=== PATIENT | female | born 1965 | race American Indian/Alaskan Native ===

== ENCOUNTER 2016-11-13 23:24 | Emergency (ER) | payer MEDICAID ==
[2016-11-14 00:02] LABS: Bilirubin,Urine NEG (Negative); Blood,Urine NEG (Negative); Ketones,Urine NEG (Negative); Leukocyte Esterase,Urine MOD (Negative); Nitrite,Urine NEG (Negative); Protein,Urine <15 mg/dL mg/dL (Negative); Urobilinogen,Urine < 2.0 mg/dL (<2.0)
[2016-11-14 00:05] LABS: Bacteria,Urine 2+ /HPF (Negative)
[2016-11-14 00:07] LABS: Basophils % (Auto) 0.5 % (0.0-1.8); Eosinophils % (Auto) 1.4 % (0.0-4.3); Hematocrit 41.6 % (30.3-42.9); Hemoglobin 13.7 gm/dl (10.1-14.3); Mean Corpuscular HGB Conc 33 % (30-34); Mean Corpuscular Hemoglobin 28 pg (28-32); Mean Corpuscular Volume 84 fl (79-97); Platelet Count 322 K/mm3 (140-440); Red Blood Count 4.97 M/mm3 (3.65-5.03); Red Cell Distribution Width 15.7 % (13.2-15.2); White Blood Count 8.6 K/mm3 (4.5-11.0)
[2016-11-14 00:33] LABS: Alanine Aminotransferase 19 units/L (7-56); Albumin 4.4 g/dL (3.9-5); Albumin/Globulin Ratio 1.4 %; Alkaline Phosphatase 98 units/L (35-129); Anion Gap 14 mmol/L; Bilirubin,Total < 0.20 mg/dL (0.1-1.2); Blood Urea Nitrogen 7 mg/dL (7-17); Calcium 9.6 mg/dL (8.4-10.2); Carbon Dioxide 29 mmol/L (22-30); Chloride 98.3 mmol/L (98-107); Glucose 103 mg/dL (65-100); Lipase 28 units/L (13-60); Potassium 4.5 mmol/L (3.6-5.0); Sodium 137 mmol/L (137-145); Total Protein 7.5 g/dL (6.3-8.2)
[2016-11-14] MEDS ORDERED: ZOFRAN IV ONE (07:11)
[2016-11-14] MEDS ORDERED: MORPHINE IV ONE (07:11)
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
[2016-11-14] MEDS ORDERED: NACL ONE (07:17)
--- NOTE | 2016-11-14 10:05 | Cat Scan Report ---
CT ABDOMEN AND PELVIS WITH CONTRAST INDICATION: Right-sided abdominal pain. COMPARISON: 02/16/2009 CT and 10/06/2014 RUQ ultrasound. FINDINGS: Abdomen and pelvis CT performed following intravenous administration of 100 cc of Omnipaque 300, though in part limited due to motion artifact. LUNG BASES: Slight bibasilar scarring. Top normal heart size. No effusions. Stable thoracic spine fusion hardware partially imaged on the timber sprinkler view. ABDOMEN: Subtle diffuse fatty hepatic infiltration not excluded. Otherwise homogenous liver and spleen. Subtle nonspecific hepatic surface lobulation. Patent veins. Gallbladder, pancreas, adrenals, nonaneurysmal abdominal aorta with few atherosclerotic calcifications and kidneys within normal limits. Previously seen small nonobstructing right renal calculi inferiorly not well visualized. 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 IVC filter again noted with its tip at the level of the renal veins. No ascites or significant adenopathy. Nonopacified GI tract evaluation limited, though grossly nonobstructive. Normal appendix, extending into the right hemipelvis. Mild to moderate colonic stool/possible constipation. PELVIS: Interval hysterectomy and suprapubic cystostomy catheter placement. Usual rectosigmoid stool. No free fluid or significant adenopathy. 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 Mild fat herniating through this defect again noted superior gluteal, though slightly more prominent, now approximately 2.6 cm, axial image 46, series 2, previously 2.2 cm. Lower lumbar facet arthropathy. Mild bilateral hip degenerative changes as well. CONCLUSION: 1. No acute CT abnormality with few incidental findings, including right iliac bone and liver CT findings/appearance, as detailed above, in light of presenting right-sided symptoms. Please correlate. 2. Various other incidental findings, including iatrogenic/postsurgical changes, duplicated left renal collecting system and interval hysterectomy and suprapubic cystostomy catheter placement since January 2009, as described. Thank you for the opportunity to participate in this patient's care.
[2016-11-14 12:43] VITALS: BP 105/62
--- NOTE | 2016-11-15 07:56 | Vascular Lab Report ---
Right Lower Extremity Venous Duplex Study: Reason for Exam: Pain of the right lower extremity. Comments on the Right: All veins visualized are freely compressible without evidence of internal echogenicity. Flow is spontaneous and phasic throughout. No evidence of acute or chronic thrombus is seen in any of the vessels visualized. Comments on the Left: A limited duplex study was done of the proximal veins of the left lower extremity. All veins visualized are freely compressible without evidence of internal echogenicity. Flow is spontaneous and phasic throughout. No evidence of acute or chronic thrombus is seen in any of the vessels visualized. Impression: No evidence of acute or chronic deep venous thrombosis in the right lower extremity.
== END 2016-11-14 11:10 | disposition home or self-care (01) ==
LOC: ED 23:24
DX: M79.1 Myalgia (principal); R82.71 Bacteriuria; J45.909 Unspecified asthma, uncomplicated; F17.210 Nicotine dependence, cigarettes, uncomplicated
CPT/HCPCS: 36415; 74177; 80053; 81001; 83690; 84703; 85025; 93971; 96374; 96375; 99284; J2270; J2405; Q9967

== ENCOUNTER 2017-03-30 12:25 | Emergency (ER) | payer MEDICAID ==
[2017-03-30] MEDS ORDERED: TYLENOL PO ONE (13:09)
[2017-03-30 14:19] LABS: Alanine Aminotransferase 30 units/L (7-56); Albumin/Globulin Ratio 1.3 %; Alkaline Phosphatase 83 units/L (35-129); Anion Gap 19 mmol/L; BUN/Creatinine Ratio 28; Blood Urea Nitrogen 17 mg/dL (7-17); Calcium 9.1 mg/dL (8.4-10.2); Carbon Dioxide 24 mmol/L (22-30); Chloride 105.3 mmol/L (98-107); Glucose 93 mg/dL (65-100); Potassium 3.8 mmol/L (3.6-5.0); Sodium 144 mmol/L (137-145)
--- NOTE | 2017-03-30 15:15 | XRay Report ---
LEFT SHOULDER: History: Fall, no additional appropriate clinical history provided. Routine views demonstrate normal bony and soft tissue structures with normal joint alignment of the shoulder. IMPRESSION: Normal study.
--- NOTE | 2017-03-30 15:16 | XRay Report ---
CERVICAL SPINE, 3 views: History: Fall, no appropriate additional clinical history was provided by the ordering physician. Findings: The vertebral bodies, disk spaces, posterior elements and prevertebral soft tissues are unremarkable. The dens is intact. No acute fracture or malalignment is identified. Impression: 1. No evidence for acute injury to the cervical spine.
[2017-03-30] MEDS ORDERED: DILAUDID IM ONE (16:54)
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
--- NOTE | 2017-03-30 18:18 | Cat Scan Report ---
FINAL REPORT PROCEDURE: CT HEAD/BRAIN WO CON TECHNIQUE: Computerized tomography of the head was performed without contrast material. HISTORY: Pain after fall COMPARISON: No prior studies are available for comparison. FINDINGS: There is no CT evidence of intracranial mass, hemorrhage, acute territorial infarction, or hydrocephalus. The intracranial arteries are symmetric in density. The calvarium is intact. The visualized paranasal sinuses and mastoids are aerated. IMPRESSION: No CT evidence of acute intracranial abnormality
--- NOTE | 2017-03-30 19:16 | Cat Scan Report ---
FINAL REPORT PROCEDURE: CT CHEST WO CON TECHNIQUE: Computerized axial tomography of the chest was performed without contrast material. This study is performed without intravenous contrast and the sensitivity for pathology, including neoplasms, adenopathy, abscess, pulmonary embolism and aortic dissection, is reduced. HISTORY: fall, back pain and chest wall pain COMPARISON: No prior studies are available for comparison. TECHNICAL QUALITY: Satisfactory. FINDINGS: There is focal low-attenuation of the right thyroid gland, possibly related to a complex cyst or low-density nodule. This measures up to 14 millimeters. Heart and pericardium: No pericardial effusion or thickening. Thoracic aorta: Normal contour. Pulmonary vasculature: Normal caliber. Lymph nodes: No enlarged thoracic lymph nodes. Lungs: Normal. Pleural space: No effusion, thickening, or pneumothorax. Musculoskeletal structures: There has been posterior fusion from the level of T4 through T8, with pedicular rods and screws in place. There is linear lucency through the spinous process of C7, which appears well corticated is favored to be related to an old fracture. Upper abdominal structures: IVC filter is present. IMPRESSION: No acute fracture is seen. Focal low-attenuation nodular cyst in the right thyroid lobe.
--- NOTE | 2017-03-30 19:36 | Cat Scan Report ---
FINAL REPORT PROCEDURE: CT CERVICAL SPINE WO CON TECHNIQUE: Computerized tomography of the cervical spine was performed from the skull base to T1 without contrast material. HISTORY: fall with neck pain COMPARISON: No prior studies are available for comparison. FINDINGS: There is a chronic appearing defect in the posterior arch of C1, likely developmental. There is linear lucency through C7 spinous process, which also appears chronic. There are hypertrophic changes of the right costovertebral junction, chronic. The vertebral body heights and alignment are maintained. Mild multilevel degenerative disc changes are present. No acute fracture is identified. IMPRESSION: No acute fracture or subluxation is identified.
[2017-03-30 20:03] VITALS: BP 115/47
== END 2017-03-31 01:02 | disposition home or self-care (01) ==
LOC: ED 12:25
DX: M54.9 Dorsalgia, unspecified (principal); M54.2 Cervicalgia
CPT/HCPCS: 36415; 70450; 71250; 72040; 72125; 73030; 80053; 96372; 99284; J1170

== ENCOUNTER 2017-07-20 02:57 | Inpatient (IN) | payer MEDICAID ==
[2017-07-20 04:05] LABS: Basophils % (Auto) 0.4 % (0.0-1.8); Eosinophils # (Auto) 0.1 K/mm3 (0.0-0.4); Eosinophils % (Auto) 0.7 % (0.0-4.3); Hematocrit 35.6 % (30.3-42.9); Hemoglobin 11.9 gm/dl (10.1-14.3); Lymphocytes # (Auto) 2.1 K/mm3 (1.2-5.4); Lymphocytes % (Auto) 20.2 % (13.4-35.0); Mean Corpuscular HGB Conc 33 % (30-34); Mean Corpuscular Hemoglobin 27 pg (28-32); Mean Corpuscular Volume 81 fl (79-97); Monocytes # (Auto) 0.8 K/mm3 (0.0-0.8); Monocytes % (Auto) 7.6 % (0.0-7.3); Platelet Count 367 K/mm3 (140-440); Red Blood Count 4.39 M/mm3 (3.65-5.03); Red Cell Distribution Width 14.4 % (13.2-15.2)
[2017-07-20 04:30] LABS: BUN/Creatinine Ratio 16; Blood Urea Nitrogen 11 mg/dL (7-17); Calcium 8.5 mg/dL (8.4-10.2); Hemolysis Index 1
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
[2017-07-20] MEDS ORDERED: VANCOMYCIN 1,250 MG in NACL 0.9% 250ML 250 ML IV ONE (08:45)
--- NOTE | 2017-07-20 08:50 | XRay Report ---
LEFT HIP, 2 views: History: Deep decub Borderline bone mineralization. Mild osteoarthritic changes are identified at the left hip. No fracture or bone lesion. Unremarkable soft tissues. IMPRESSION: Mild osteoarthritis. No acute process noted.
--- NOTE | 2017-07-20 08:52 | XRay Report ---
AP CHEST: HISTORY: Hypertension AP view of the chest demonstrates a normal mediastinal and cardiac contour with clear lungs and normal bony and soft tissue structures. Posterior fixation of the upper thoracic spine is noted. IMPRESSION: Unremarkable AP chest.
[2017-07-20] MEDS ORDERED: VANCOMYCIN PHARMACY TO DOSE IV SCH (09:00)
[2017-07-20 09:27] LABS: INR 0.93 (0.87-1.13)
[2017-07-20 09:28] LABS: Partial Thromboplastin Time 35.6 Sec. (24.2-36.6)
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
[2017-07-20] MEDS ORDERED: ZOFRAN IV PRN (11:01)
[2017-07-20] MEDS ORDERED: BABY ASPIRIN PO ONE (11:49)
[2017-07-20] MEDS: SODIUM CHLORIDE FLUSH SYRINGE 10 ML IV PRN (16:16)
[2017-07-20] MEDS: ZOSYN/NS 4.5GM/100ML 4.5 GM/100 ML VIAL IV SCH ×2 (16:16→21:10)
[2017-07-20] MEDS: TYLENOL PO PRN (16:22)
[2017-07-20] MEDS ORDERED: VANCOMYCIN/NS 1 GM/250 ML 1 GM/250 ML BAG IV SCH (21:00)
[2017-07-20] MEDS: SODIUM CHLORIDE FLUSH SYRINGE 10 ML IV SCH (21:11)
[2017-07-20] MEDS: LIORESAL PO SCH (21:11)
[2017-07-20] MEDS: DITROPAN PO SCH (21:12)
[2017-07-20] MEDS: ZANAFLEX PO SCH (21:12)
[2017-07-21] MEDS: ZOSYN/NS 4.5GM/100ML 4.5 GM/100 ML VIAL IV SCH ×3 (05:44→23:06)
[2017-07-21] MEDS: ZANAFLEX PO SCH ×3 (09:31→23:14)
[2017-07-21] MEDS: LOVENOX SUB-Q SCH (09:31)
[2017-07-21] MEDS: DITROPAN PO SCH ×2 (09:31→23:13)
[2017-07-21] MEDS: TYLENOL PO PRN (09:32)
[2017-07-21] MEDS: LIORESAL PO SCH ×3 (10:00→23:14)
[2017-07-21] MEDS: SODIUM CHLORIDE FLUSH SYRINGE 10 ML IV SCH ×2 (10:01→23:08)
--- NOTE | 2017-07-21 10:23 | Progress Note ---
Assessment and Plan Assessment and plan: Left hip ulcer with probable osteomyelitis. MRI of the left hip for further evaluation. Continue IV antibiotics. Orthopedic consultation pending. Chest pain. Check EKG. Consider stress thallium. T6 paraplegia. Supportive care. History Interval history: Nurse report patient complained of brief episode chest pain this a.m. No shortness of breath. Hospitalist Physical - Constitutional Vitals: Temp Pulse Resp BP Pulse Ox 98.4 F 74 18 111/38 98 07/21/17 07:40 07/21/17 07:40 07/21/17 07:40 07/21/17 07:40 07/21/17 07:40 General appearance: Present: no acute distress, well-nourished - EENT Eyes: Present: PERRL, EOM intact ENT: hearing intact, clear oral mucosa, dentition normal - Neck Neck: Present: supple, normal ROM - Respiratory Respiratory effort: normal Respiratory: bilateral: CTA - Cardiovascular Rhythm: regular Heart Sounds: Present: S1 & S2. Absent: gallop, rub - Extremities Extremities: no ischemia, No edema, Full ROM - Abdominal General gastrointestinal: soft, non-tender, non-distended, normal bowel sounds - Integumentary Integumentary: Present: clear, warm, dry - Neurologic Neurologic: CNII-XII intact, moves all extremities Results - Labs CBC & Chem 7: 07/20/17 03:46 07/20/17 03:46 Labs: Laboratory Last Values WBC 10.6 K/mm3 (4.5-11.0) 07/20/17 03:46 RBC 4.39 M/mm3 (3.65-5.03) 07/20/17 03:46 Hgb 11.9 gm/dl (10.1-14.3) 07/20/17 03:46 Hct 35.6 % (30.3-42.9) 07/20/17 03:46 MCV 81 fl (79-97) 07/20/17 03:46 MCH 27 pg (28-32) L 07/20/17 03:46 MCHC 33 % (30-34) 07/20/17 03:46 RDW 14.4 % (13.2-15.2) 07/20/17 03:46 Plt Count 367 K/mm3 (140-440) 07/20/17 03:46 Lymph % (Auto) 20.2 % (13.4-35.0) 07/20/17 03:46 [place] % (Auto) 7.6 % (0.0-7.3) H 07/20/17 03:46 Eos % (Auto) 0.7 % (0.0-4.3) 07/20/17 03:46 Baso % (Auto) 0.4 % (0.0-1.8) 07/20/17 03:46 Lymph # 2.1 K/mm3 (1.2-5.4) 07/20/17 03:46 [place] # 0.8 K/mm3 (0.0-0.8) 07/20/17 03:46 Eos # 0.1 K/mm3 (0.0-0.4) 07/20/17 03:46 Baso # 0.0 K/mm3 (0.0-0.1) 07/20/17 03:46 Seg Neutrophils % 71.1 % (40.0-70.0) H 07/20/17 03:46 Seg Neutrophils # 7.5 K/mm3 (1.8-7.7) 07/20/17 03:46 ESR 63 mm/Hr (0-20) 07/20/17 08:51 PT 12.9 Sec. (12.2-14.9) 07/20/17 08:57 INR 0.93 (0.87-1.13) 07/20/17 08:57 APTT 35.6 Sec. (24.2-36.6) 07/20/17 08:57 Sodium 139 mmol/L (137-145) 07/20/17 03:46 Potassium 4.0 mmol/L (3.6-5.0) 07/20/17 03:46 Chloride 100.6 mmol/L (98-107) 07/20/17 03:46 Carbon Dioxide 26 mmol/L (22-30) 07/20/17 03:46 Anion Gap 16 mmol/L 07/20/17 03:46 BUN 11 mg/dL (7-17) 07/20/17 03:46 Creatinine 0.7 mg/dL (0.7-1.2) 07/20/17 03:46 Estimated GFR > 60 ml/min 07/20/17 03:46 BUN/Creatinine Ratio 16 % 07/20/17 03:46 Glucose 108 mg/dL (65-100) H 07/20/17 03:46 Lactic Acid 1.00 mmol/L (0.7-2.0) 07/20/17 03:46 Calcium 8.5 mg/dL (8.4-10.2) 07/20/17 03:46 C-Reactive Protein 5.20 mg/dL (0.00-1.30) H 07/20/17 08:57 Blood Type A POSITIVE 07/20/17 11:07 Antibody Screen Negative 07/20/17 11:07
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
--- NOTE | 2017-07-21 18:54 | Procedure Note ---
Date of procedure: 07/21/17 Pre-op diagnosis: left thigh decubitus ulcer Post-op diagnosis: same Procedure: Debridement of left hip wound Consent was obtained. Timeout was performed. I confirmed patient had no sensation. With scissors, I sharply excised all the necrotic tissue along the caudal margin as well as in the deep portion of the wound. Approximately, 5 cm of tissue was excised. Remaining tissue bled and had a more normal appearance. Pressure was held for hemostasis. Once this was done, dressings were placed. Patient tolerated procedure well. There were no complications. Anesthesia: none Surgeon: MARY SOSA Estimated blood loss: minimal Pathology: none Condition: stable Disposition: floor
[2017-07-22] MEDS ORDERED: ALUM-MAG HYDROX-SIMETH 200-200-20MG/5ML PO PRN (00:55)
[2017-07-22] MEDS: ZOSYN/NS 4.5GM/100ML 4.5 GM/100 ML VIAL IV SCH ×3 (07:00→22:50)
[2017-07-22 07:29] LABS: BUN/Creatinine Ratio 10; Blood Urea Nitrogen 7 mg/dL (7-17); Calcium 8.8 mg/dL (8.4-10.2); Hemolysis Index 14
[2017-07-22 07:38] LABS: Basophils % (Auto) 0.6 % (0.0-1.8); Eosinophils # (Auto) 0.1 K/mm3 (0.0-0.4); Eosinophils % (Auto) 2.1 % (0.0-4.3); Hemoglobin 11.1 gm/dl (10.1-14.3); Lymphocytes # (Auto) 2.6 K/mm3 (1.2-5.4); Lymphocytes % (Auto) 43.5 % (13.4-35.0); Mean Corpuscular HGB Conc 32 % (30-34); Mean Corpuscular Hemoglobin 26 pg (28-32); Mean Corpuscular Volume 83 fl (79-97); Monocytes # (Auto) 0.5 K/mm3 (0.0-0.8); Monocytes % (Auto) 7.9 % (0.0-7.3); Platelet Count 353 K/mm3 (140-440); Red Blood Count 4.24 M/mm3 (3.65-5.03); Red Cell Distribution Width 14.3 % (13.2-15.2)
[2017-07-22] MEDS: LOVENOX SUB-Q SCH (11:41)
[2017-07-22] MEDS: LIORESAL PO SCH ×3 (11:41→22:48)
[2017-07-22] MEDS: HABITROL TD SCH (11:41)
[2017-07-22] MEDS: SODIUM CHLORIDE FLUSH SYRINGE 10 ML IV SCH ×2 (11:42→22:51)
[2017-07-22] MEDS: DITROPAN PO SCH ×2 (11:42→22:49)
[2017-07-22] MEDS: ZANAFLEX PO SCH ×3 (11:42→22:48)
[2017-07-22] MEDS: TYLENOL PO PRN ×2 (12:00→22:49)
--- NOTE | 2017-07-22 12:01 | Progress Note ---
Assessment and Plan Assessment and plan: Left hip ulcer/wound with possible osteomyelitis. MRI of the left hip for further evaluation. Continue IV antibiotics. Surgery performed debridement of left hip wound. Chest pain. Consider stress thallium in a.m. T6 paraplegia. Supportive care. History Interval history: No new complaints of CP or SOB Hospitalist Physical - Constitutional Vitals: Temp Pulse Resp BP Pulse Ox 98.1 F 57 L 18 109/39 98 07/22/17 07:37 07/22/17 07:37 07/22/17 07:37 07/22/17 07:37 07/22/17 07:37 General appearance: Present: no acute distress, well-nourished - EENT Eyes: Present: PERRL, EOM intact ENT: hearing intact, clear oral mucosa, dentition normal - Neck Neck: Present: supple, normal ROM - Respiratory Respiratory effort: normal Respiratory: bilateral: CTA - Cardiovascular Rhythm: regular Heart Sounds: Present: S1 & S2. Absent: gallop, rub - Extremities Extremities: no ischemia, No edema, Full ROM - Abdominal General gastrointestinal: soft, non-tender, non-distended, normal bowel sounds - Integumentary Integumentary: Present: clear, warm, dry - Neurologic Neurologic: CNII-XII intact, moves all extremities Results - Labs CBC & Chem 7: 07/22/17 06:53 07/22/17 06:53 Labs: Laboratory Last Values WBC 5.9 K/mm3 (4.5-11.0) 07/22/17 06:53 RBC 4.24 M/mm3 (3.65-5.03) 07/22/17 06:53 Hgb 11.1 gm/dl (10.1-14.3) 07/22/17 06:53 Hct 35.0 % (30.3-42.9) 07/22/17 06:53 MCV 83 fl (79-97) 07/22/17 06:53 MCH 26 pg (28-32) L 07/22/17 06:53 MCHC 32 % (30-34) 07/22/17 06:53 RDW 14.3 % (13.2-15.2) 07/22/17 06:53 Plt Count 353 K/mm3 (140-440) 07/22/17 06:53 Lymph % (Auto) 43.5 % (13.4-35.0) H 07/22/17 06:53 Carbon % (Auto) 7.9 % (0.0-7.3) H 07/22/17 06:53 Eos % (Auto) 2.1 % (0.0-4.3) 07/22/17 06:53 Baso % (Auto) 0.6 % (0.0-1.8) 07/22/17 06:53 Lymph # 2.6 K/mm3 (1.2-5.4) 07/22/17 06:53 Carbon # 0.5 K/mm3 (0.0-0.8) 07/22/17 06:53 Eos # 0.1 K/mm3 (0.0-0.4) 07/22/17 06:53 Baso # 0.0 K/mm3 (0.0-0.1) 07/22/17 06:53 Seg Neutrophils % 45.9 % (40.0-70.0) 07/22/17 06:53 Seg Neutrophils # 2.7 K/mm3 (1.8-7.7) 07/22/17 06:53 ESR 63 mm/Hr (0-20) 07/20/17 08:51 PT 12.9 Sec. (12.2-14.9) 07/20/17 08:57 INR 0.93 (0.87-1.13) 07/20/17 08:57 APTT 35.6 Sec. (24.2-36.6) 07/20/17 08:57 Sodium 145 mmol/L (137-145) 07/22/17 06:53 Potassium 4.4 mmol/L (3.6-5.0) 07/22/17 06:53 Chloride 105.8 mmol/L (98-107) 07/22/17 06:53 Carbon Dioxide 27 mmol/L (22-30) 07/22/17 06:53 Anion Gap 17 mmol/L 07/22/17 06:53 BUN 7 mg/dL (7-17) 07/22/17 06:53 Creatinine 0.7 mg/dL (0.7-1.2) 07/22/17 06:53 Estimated GFR > 60 ml/min 07/22/17 06:53 BUN/Creatinine Ratio 10 % 07/22/17 06:53 Glucose 100 mg/dL (65-100) 07/22/17 06:53 Lactic Acid 1.00 mmol/L (0.7-2.0) 07/20/17 03:46 Calcium 8.8 mg/dL (8.4-10.2) 07/22/17 06:53 Troponin T < 0.010 ng/mL (0.00-0.029) 07/21/17 19:57 C-Reactive Protein 5.20 mg/dL (0.00-1.30) H 07/20/17 08:57 Blood Type A POSITIVE 07/20/17 11:07 Antibody Screen Negative 07/20/17 11:07
--- NOTE | 2017-07-22 12:25 | Magnetic Resonance Report ---
MRI LEFT HIP WITHOUT CONTRAST: 07/22/17 11:01:00 CLINICAL: Decubitus ulcer and possible osteomyelitis. TECHNIQUE: Coronal and sagittal T1, coronal STIR and coronal and axial proton density sequences on a 1.5 Kim magnet without contrast. The images were sided with a large [id number] for evaluating the soft tissues rather than the hip joint itself. FINDINGS: Normal marrow signal of the left hip and proximal left femur. No erosive changes and no marrow edema. Posterior, medial and lateral subcutaneous edema and deep soft tissue edema involving the gluteus camron muscle and the semimembranosus and semitendinosus muscles. However, no abscess. The hip joint is normal with physiologic fluid. IMPRESSION:Cellulitis of the superficial and deep soft tissues of the left buttock and upper thigh. No abscess and no signs of osteomyelitis.
--- NOTE | 2017-07-22 13:56 | Progress Note ---
Assessment and Plan - Patient Problems (1) Decubitus ulcer, stage 4 with infection Current Visit: Yes Status: Acute Plan to address problem: s/p wound debridement 07/21 - POD#1. Patient is stable. Wound is clean. Continue with wound care plans per wound care nurse. Will be available if further debridement is needed. Please call with any questions. Subjective Date of service: 07/22/17 Patient Reports: Positive: no new complaints (reports the bad smell is gone.) Objective Vital Signs - 12hr 07/22/17 07/22/17 07:37 11:54 Temperature 98.1 F 97.3 F L Pulse Rate 57 L 66 Respiratory 18 18 Rate Blood Pressure 109/39 131/49 O2 Sat by Pulse 98 97 Oximetry - General physical appearance well developed, well nourished, no distress, no pain - Respiratory normal expansion, normal respiratory effort - Integumentary other (wound is fairly clean. There is no active bleeding. No erythema is noted. There is no foul smell anymore.) - Labs 07/22/17 06:53 07/22/17 06:53 Diabetes panel 07/22/17 Range/Units 06:53 Sodium 145 (137-145) mmol/L Potassium 4.4 (3.6-5.0) mmol/L Chloride 105.8 (98-107) mmol/L Carbon Dioxide 27 (22-30) mmol/L BUN 7 (7-17) mg/dL Creatinine 0.7 (0.7-1.2) mg/dL Glucose 100 (65-100) mg/dL Calcium 8.8 (8.4-10.2) mg/dL Calcium panel 07/22/17 Range/Units 06:53 Calcium 8.8 (8.4-10.2) mg/dL Pituitary panel 07/22/17 Range/Units 06:53 Sodium 145 (137-145) mmol/L Potassium 4.4 (3.6-5.0) mmol/L Chloride 105.8 (98-107) mmol/L Carbon Dioxide 27 (22-30) mmol/L BUN 7 (7-17) mg/dL Creatinine 0.7 (0.7-1.2) mg/dL Glucose 100 (65-100) mg/dL Calcium 8.8 (8.4-10.2) mg/dL Adrenal panel 03/24/18 Range/Units 06:53 Sodium 145 (137-145) mmol/L Potassium 4.4 (3.6-5.0) mmol/L Chloride 105.8 (98-107) mmol/L Carbon Dioxide 27 (22-30) mmol/L BUN 7 (7-17) mg/dL Creatinine 0.7 (0.7-1.2) mg/dL Glucose 100 (65-100) mg/dL Calcium 8.8 (8.4-10.2) mg/dL
[2017-07-22] MEDS ORDERED: ZANAFLEX PO SCH (14:00)
[2017-07-22] MEDS: MOBIC PO SCH (14:05)
[2017-07-22] MEDS ORDERED: DITROPAN PO SCH (22:00)
[2017-07-23] MEDS: ZOSYN/NS 4.5GM/100ML 4.5 GM/100 ML VIAL IV SCH ×3 (06:35→21:36)
[2017-07-23] MEDS: SODIUM CHLORIDE FLUSH SYRINGE 10 ML IV PRN (06:37)
[2017-07-23 07:03] LABS: Basophils % (Auto) 0.6 % (0.0-1.8); Eosinophils # (Auto) 0.1 K/mm3 (0.0-0.4); Eosinophils % (Auto) 1.9 % (0.0-4.3); Hematocrit 33.5 % (30.3-42.9); Hemoglobin 11.1 gm/dl (10.1-14.3); Lymphocytes # (Auto) 2.6 K/mm3 (1.2-5.4); Lymphocytes % (Auto) 40.1 % (13.4-35.0); Mean Corpuscular HGB Conc 33 % (30-34); Mean Corpuscular Hemoglobin 27 pg (28-32); Mean Corpuscular Volume 81 fl (79-97); Monocytes # (Auto) 0.5 K/mm3 (0.0-0.8); Monocytes % (Auto) 8.3 % (0.0-7.3); Platelet Count 341 K/mm3 (140-440); Red Blood Count 4.13 M/mm3 (3.65-5.03); Red Cell Distribution Width 14.3 % (13.2-15.2)
[2017-07-23 07:26] LABS: BUN/Creatinine Ratio 11; Blood Urea Nitrogen 8 mg/dL (7-17); Calcium 8.6 mg/dL (8.4-10.2); Hemolysis Index 0
[2017-07-23] MEDS: LIORESAL PO SCH ×3 (08:47→21:37)
[2017-07-23] MEDS: DITROPAN PO SCH ×3 (08:47→21:37)
[2017-07-23] MEDS: HABITROL TD SCH ×2 (08:48→11:10)
[2017-07-23] MEDS: MOBIC PO SCH ×2 (08:48→11:08)
[2017-07-23] MEDS: LOVENOX SUB-Q SCH ×2 (08:49→11:10)
[2017-07-23] MEDS: ZANAFLEX PO SCH ×3 (08:49→21:37)
[2017-07-23] MEDS: TYLENOL PO PRN ×2 (08:56→15:31)
[2017-07-23] MEDS: SODIUM CHLORIDE FLUSH SYRINGE 10 ML IV SCH ×2 (11:10→22:03)
--- NOTE | 2017-07-23 11:17 | Progress Note ---
Assessment and Plan Assessment and plan: Left hip decubitus ulcer/wound, stage IV with infection. MRI of the left hip revealed no osteomyelitis or abscess.. Continue IV antibiotics. Surgery performed debridement of left hip wound. Left hip cellulitis. Continue antibiotics as above. Chest pain. Stress thallium in a.m. T6 paraplegia. Supportive care. History Interval history: No new complaints of CP or SOB Hospitalist Physical - Constitutional Vitals: Temp Pulse Resp BP Pulse Ox 97.3 F L 56 L 18 110/36 97 07/23/17 07:32 07/23/17 07:32 07/23/17 07:32 07/23/17 07:32 07/23/17 07:32 General appearance: Present: no acute distress, well-nourished - EENT Eyes: Present: PERRL, EOM intact ENT: hearing intact, clear oral mucosa, dentition normal - Neck Neck: Present: supple, normal ROM - Respiratory Respiratory effort: normal Respiratory: bilateral: CTA - Cardiovascular Rhythm: regular Heart Sounds: Present: S1 & S2. Absent: gallop, rub - Extremities Extremities: no ischemia, No edema, Full ROM - Abdominal General gastrointestinal: soft, non-tender, non-distended, normal bowel sounds - Integumentary Integumentary: Present: clear, warm, dry - Neurologic Neurologic: CNII-XII intact, moves all extremities Results - Labs CBC & Chem 7: 07/23/17 06:07 07/23/17 06:07 Labs: Laboratory Last Values WBC 6.4 K/mm3 (4.5-11.0) 07/23/17 06:07 RBC 4.13 M/mm3 (3.65-5.03) 07/23/17 06:07 Hgb 11.1 gm/dl (10.1-14.3) 07/23/17 06:07 Hct 33.5 % (30.3-42.9) 07/23/17 06:07 MCV 81 fl (79-97) 07/23/17 06:07 MCH 27 pg (28-32) L 07/23/17 06:07 MCHC 33 % (30-34) 07/23/17 06:07 RDW 14.3 % (13.2-15.2) 07/23/17 06:07 Plt Count 341 K/mm3 (140-440) 07/23/17 06:07 Lymph % (Auto) 40.1 % (13.4-35.0) H 07/23/17 06:07 [place] % (Auto) 8.3 % (0.0-7.3) H 07/23/17 06:07 Eos % (Auto) 1.9 % (0.0-4.3) 07/23/17 06:07 Baso % (Auto) 0.6 % (0.0-1.8) 07/23/17 06:07 Lymph # 2.6 K/mm3 (1.2-5.4) 07/23/17 06:07 [place] # 0.5 K/mm3 (0.0-0.8) 07/23/17 06:07 Eos # 0.1 K/mm3 (0.0-0.4) 07/23/17 06:07 Baso # 0.0 K/mm3 (0.0-0.1) 07/23/17 06:07 Seg Neutrophils % 49.1 % (40.0-70.0) 07/23/17 06:07 Seg Neutrophils # 3.2 K/mm3 (1.8-7.7) 07/23/17 06:07 ESR 63 mm/Hr (0-20) 07/20/17 08:51 PT 12.9 Sec. (12.2-14.9) 07/20/17 08:57 INR 0.93 (0.87-1.13) 07/20/17 08:57 APTT 35.6 Sec. (24.2-36.6) 07/20/17 08:57 Sodium 142 mmol/L (137-145) 07/23/17 06:07 Potassium 4.0 mmol/L (3.6-5.0) 07/23/17 06:07 Chloride 105.2 mmol/L (98-107) 07/23/17 06:07 Carbon Dioxide 24 mmol/L (22-30) 07/23/17 06:07 Anion Gap 17 mmol/L 07/23/17 06:07 BUN 8 mg/dL (7-17) 07/23/17 06:07 Creatinine 0.7 mg/dL (0.7-1.2) 07/23/17 06:07 Estimated GFR > 60 ml/min 07/23/17 06:07 BUN/Creatinine Ratio 11 % 07/23/17 06:07 Glucose 95 mg/dL (65-100) 07/23/17 06:07 Lactic Acid 1.00 mmol/L (0.7-2.0) 07/20/17 03:46 Calcium 8.6 mg/dL (8.4-10.2) 07/23/17 06:07 Troponin T < 0.010 ng/mL (0.00-0.029) 07/21/17 19:57 C-Reactive Protein 5.20 mg/dL (0.00-1.30) H 07/20/17 08:57 Blood Type A POSITIVE 07/20/17 11:07 Antibody Screen Negative 07/20/17 11:07
[2017-07-23] MEDS ORDERED: HumaLOG SUB-Q SCH (11:30)
[2017-07-24] MEDS: ZOSYN/NS 4.5GM/100ML 4.5 GM/100 ML VIAL IV SCH ×3 (05:44→21:20)
[2017-07-24 06:44] LABS: Basophils % (Auto) 0.4 % (0.0-1.8); Eosinophils # (Auto) 0.1 K/mm3 (0.0-0.4); Eosinophils % (Auto) 1.5 % (0.0-4.3); Hematocrit 31.9 % (30.3-42.9); Hemoglobin 10.3 gm/dl (10.1-14.3); Lymphocytes # (Auto) 2.3 K/mm3 (1.2-5.4); Lymphocytes % (Auto) 40.9 % (13.4-35.0); Mean Corpuscular HGB Conc 32 % (30-34); Mean Corpuscular Hemoglobin 26 pg (28-32); Mean Corpuscular Volume 81 fl (79-97); Monocytes # (Auto) 0.4 K/mm3 (0.0-0.8); Platelet Count 320 K/mm3 (140-440); Red Blood Count 3.93 M/mm3 (3.65-5.03); Red Cell Distribution Width 14.8 % (13.2-15.2)
[2017-07-24 07:07] LABS: BUN/Creatinine Ratio 10; Blood Urea Nitrogen 7 mg/dL (7-17); Calcium 8.5 mg/dL (8.4-10.2); Hemolysis Index 0
[2017-07-24] MEDS: LIORESAL PO SCH ×3 (08:00→20:05)
[2017-07-24] MEDS: ZANAFLEX PO SCH ×3 (08:00→20:05)
[2017-07-24] MEDS: LOVENOX SUB-Q SCH (10:00)
[2017-07-24] MEDS: DITROPAN PO SCH ×2 (10:00→21:20)
[2017-07-24] MEDS: SODIUM CHLORIDE FLUSH SYRINGE 10 ML IV SCH ×2 (10:00→21:21)
[2017-07-24] MEDS: HABITROL TD SCH (10:00)
[2017-07-24] MEDS ORDERED: LEXISCAN IV ONE ×2 (10:14→10:16)
[2017-07-24] MEDS: MOBIC PO SCH (10:20)
--- NOTE | 2017-07-24 11:20 | Progress Note ---
Assessment and Plan Assessment and plan: Left hip decubitus ulcer/wound, stage IV with infection. MRI of the left hip revealed no osteomyelitis or abscess.. Continue IV antibiotics. Surgery performed debridement of left hip wound. Left hip cellulitis. Continue antibiotics as above. Chest pain. Stress thallium today T6 paraplegia. Supportive care. Disposition. Anticipate discharge in a.m. History Interval history: No new complaints of CP or SOB Hospitalist Physical - Constitutional Vitals: Temp Pulse Resp BP Pulse Ox 98.0 F 56 L 16 127/49 99 07/24/17 07:42 07/24/17 07:42 07/24/17 07:42 07/24/17 07:42 07/24/17 07:42 General appearance: Present: no acute distress, well-nourished - EENT Eyes: Present: PERRL, EOM intact ENT: hearing intact, clear oral mucosa, dentition normal - Neck Neck: Present: supple, normal ROM - Respiratory Respiratory effort: normal Respiratory: bilateral: CTA - Cardiovascular Rhythm: regular Heart Sounds: Present: S1 & S2. Absent: gallop, rub - Extremities Extremities: no ischemia, No edema, Full ROM - Abdominal General gastrointestinal: soft, non-tender, non-distended, normal bowel sounds - Integumentary Integumentary: Present: clear, warm, dry - Neurologic Neurologic: CNII-XII intact, moves all extremities Results - Labs CBC & Chem 7: 07/24/17 06:13 07/24/17 06:13 Labs: Laboratory Last Values WBC 5.6 K/mm3 (4.5-11.0) 07/24/17 06:13 RBC 3.93 M/mm3 (3.65-5.03) 07/24/17 06:13 Hgb 10.3 gm/dl (10.1-14.3) 07/24/17 06:13 Hct 31.9 % (30.3-42.9) 07/24/17 06:13 MCV 81 fl (79-97) 07/24/17 06:13 MCH 26 pg (28-32) L 07/24/17 06:13 MCHC 32 % (30-34) 07/24/17 06:13 RDW 14.8 % (13.2-15.2) 07/24/17 06:13 Plt Count 320 K/mm3 (140-440) 07/24/17 06:13 Lymph % (Auto) 40.9 % (13.4-35.0) H 07/24/17 06:13 [place] % (Auto) 7.0 % (0.0-7.3) 07/24/17 06:13 Eos % (Auto) 1.5 % (0.0-4.3) 07/24/17 06:13 Baso % (Auto) 0.4 % (0.0-1.8) 07/24/17 06:13 Lymph # 2.3 K/mm3 (1.2-5.4) 07/24/17 06:13 [place] # 0.4 K/mm3 (0.0-0.8) 07/24/17 06:13 Eos # 0.1 K/mm3 (0.0-0.4) 07/24/17 06:13 Baso # 0.0 K/mm3 (0.0-0.1) 07/24/17 06:13 Seg Neutrophils % 50.2 % (40.0-70.0) 07/24/17 06:13 Seg Neutrophils # 2.8 K/mm3 (1.8-7.7) 07/24/17 06:13 ESR 63 mm/Hr (0-20) 07/20/17 08:51 PT 12.9 Sec. (12.2-14.9) 07/20/17 08:57 INR 0.93 (0.87-1.13) 07/20/17 08:57 APTT 35.6 Sec. (24.2-36.6) 07/20/17 08:57 Sodium 144 mmol/L (137-145) 07/24/17 06:13 Potassium 4.1 mmol/L (3.6-5.0) 07/24/17 06:13 Chloride 106.7 mmol/L (98-107) 07/24/17 06:13 Carbon Dioxide 26 mmol/L (22-30) 07/24/17 06:13 Anion Gap 15 mmol/L 07/24/17 06:13 BUN 7 mg/dL (7-17) 07/24/17 06:13 Creatinine 0.7 mg/dL (0.7-1.2) 07/24/17 06:13 Estimated GFR > 60 ml/min 07/24/17 06:13 BUN/Creatinine Ratio 10 % 07/24/17 06:13 Glucose 91 mg/dL (65-100) 07/24/17 06:13 Lactic Acid 1.00 mmol/L (0.7-2.0) 07/20/17 03:46 Calcium 8.5 mg/dL (8.4-10.2) 07/24/17 06:13 Troponin T < 0.010 ng/mL (0.00-0.029) 07/21/17 19:57 C-Reactive Protein 5.20 mg/dL (0.00-1.30) H 07/20/17 08:57 Blood Type A POSITIVE 07/20/17 11:07 Antibody Screen Negative 07/20/17 11:07
--- NOTE | 2017-07-24 23:54 | Treadmill Report ---
THALLIUM STRESS TEST LEFT VENTRICLE: Left ventricular chamber size is within normal spread. Perfusion study demonstrates homogeneous uptake of the tracer in all segments, no significant perfusion defects identified. Gated analysis demonstrates normal left ventricular systolic function, ejection fraction of 58%. CONCLUSION: Normal myocardial perfusion study. JOB# [id number] CA/NTS
[2017-07-25] MEDS: ZOSYN/NS 4.5GM/100ML 4.5 GM/100 ML VIAL IV SCH (05:04)
[2017-07-25] MEDS: ZANAFLEX PO SCH (08:00)
[2017-07-25] MEDS: LIORESAL PO SCH (08:00)
[2017-07-25 08:07] VITALS: BP 152/58
[2017-07-25 08:27] LABS: BUN/Creatinine Ratio 11; Blood Urea Nitrogen 8 mg/dL (7-17); Calcium 8.9 mg/dL (8.4-10.2); Hemolysis Index 26
--- NOTE | 2017-07-25 08:49 | Discharge Summary ---
Providers - Providers Date of Admission: 07/20/17 11:01 Date of discharge: 07/25/17 Attending physician: DERRICK NEVILLE 07/20/17 18:33 Consult to Wound/ET Nurse [CONS] Routine Reason For Exam: wound eval 07/21/17 07:37 Consult to Physician [CONS] Routine Comment: Consulting Provider: EFREN OCONNOR Physician Instructions: Reason For Exam: left hip ulcer 07/21/17 13:34 Consult to Physician [CONS] Routine Comment: Consulting Provider: MARY SOSA Physician Instructions: Reason For Exam: SURGICAL DEBRIDEMENT Primary care physician: [employer] Hospitalization Reason for admission: left hip wound Condition: Stable Hospital course: 51-year-old female with a history of paraplegia was admitted due to the left hip wound with foul-smelling drainage. She denies any sensation in that area. Wound care had been consulted and felt that debridement was in order. Therefore , general surgery was consulted. General surgery debrided the left hip wound and patient tolerated procedure well. The patient underwent MRI of the left lower extremity to rule out abscess or osteomyelitis. MRI was negative. Other complications during hospital stay included a complaint of chest pain by the patient. The patient underwent stress test that was found to be negative. Patient will be discharged home with antibiotics and follow with surgeon as an outpatient. Dedicated discharge time 32 minutes. Disposition: TO HOME OR SELFCARE Time spent for discharge: 32 - Discharge Diagnoses (1) Paraplegia Status: Acute (2) Decubitus ulcer, stage 4 with infection Status: Acute Core Measure Documentation - Palliative Care Palliative Care/ Comfort Measures: Not Applicable - Core Measures Any of the following diagnoses?: none Exam - Constitutional Vitals: Temp Pulse Resp BP Pulse Ox 97.7 F 62 16 152/58 96 07/25/17 07:27 07/25/17 07:27 07/25/17 07:27 07/25/17 07:27 07/25/17 07:27 General appearance: Present: no acute distress, well-nourished - EENT Eyes: Present: PERRL ENT: hearing intact, clear oral mucosa - Neck Neck: Present: supple, normal ROM - Respiratory Respiratory effort: normal Respiratory: bilateral: CTA - Cardiovascular Heart Sounds: Present: S1 & S2. Absent: rub, click - Extremities Extremities: pulses symmetrical, No edema Peripheral Pulses: within normal limits - Abdominal General gastrointestinal: Present: soft, non-tender, non-distended, normal bowel sounds Female genitourinary: Present: normal - Integumentary Integumentary: Present: clear, warm, dry - Musculoskeletal Musculoskeletal: gait normal, strength equal bilaterally - Psychiatric Psychiatric: appropriate mood/affect, intact judgment & insight - Neurologic Neurologic: CNII-XII intact, moves all extremities Plan Activity: no restrictions Weight Bearing Status: Non-Weight Bearing Diet: regular Wound: per your surgeon's advice, per wound nurse instructions Durable Medical Equipment Needed Upon Discharge: other (wound care items) Follow up with: PRIMARY MD SUKUMAR [Primary Care Provider] - 3-5 Days MARY SOSA MD [Staff Physician] - 7 Days Prescriptions: Baclofen [Lioresal] 10 mg PO TID #90 tablet Meloxicam [Mobic] 7.5 mg PO DAILY #10 tablet Oxybutynin [Ditropan] 5 mg PO BID #60 tablet tiZANidine [Zanaflex] 4 mg PO TID #90 tablet
[2017-07-25] MEDS: SODIUM CHLORIDE FLUSH SYRINGE 10 ML IV SCH (09:04)
[2017-07-25] MEDS: DITROPAN PO SCH (09:05)
[2017-07-25] MEDS: MOBIC PO SCH (09:06)
[2017-07-25] MEDS: LOVENOX SUB-Q SCH (09:06)
[2017-07-25] MEDS: HABITROL TD SCH (09:07)
== END 2017-07-25 12:20 | disposition home or self-care (01) | DRG 570 ==
LOC: ED 02:57 → 3A 11:01
PROVIDERS: ADMIT Hospitalist; ATTEND Hospitalist
PROC: 4A033R1 Measurement of Arterial Saturation, Peripheral, Percutaneous Approach (ICD-10-PCS; 2017-07-20)
PROC: 0JBM0ZZ Excision of Left Upper Leg Subcutaneous Tissue and Fascia, Open Approach (ICD-10-PCS; principal; 2017-07-21)
DX: L89.224 Pressure ulcer of left hip, stage 4 (principal); L03.116 Cellulitis of left lower limb; G82.20 Paraplegia, unspecified; Z88.8 Allergy status to other drugs, medicaments and biological substances; Z90.710 Acquired absence of both cervix and uterus; F17.200 Nicotine dependence, unspecified, uncomplicated; R07.9 Chest pain, unspecified
CPT/HCPCS: 36415; 71045; 73721; 78452; 80048; 82140; 84484; 85025; 85610; 85652; 85730; 86140; 86850; 86900; 86901; 87040; 87076; 87086; 87186; 93005; 93010; 93017; A9502; J1650; J2543; J2785; J3370; J7050

== ENCOUNTER 2017-08-07 17:56 | Emergency (ER) | payer MEDICAID ==
[2017-08-07] MEDS ORDERED: NORCO 5/325 PO ONE (18:56)
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
[2017-08-07 19:32] LABS: Basophils % (Auto) 0.4 % (0.0-1.8); Eosinophils # (Auto) 0.1 K/mm3 (0.0-0.4); Eosinophils % (Auto) 1.4 % (0.0-4.3); Hemoglobin 10.9 gm/dl (10.1-14.3); Lymphocytes # (Auto) 2.1 K/mm3 (1.2-5.4); Lymphocytes % (Auto) 24.2 % (13.4-35.0); Mean Corpuscular HGB Conc 32 % (30-34); Mean Corpuscular Hemoglobin 26 pg (28-32); Mean Corpuscular Volume 81 fl (79-97); Monocytes # (Auto) 0.7 K/mm3 (0.0-0.8); Monocytes % (Auto) 8.2 % (0.0-7.3); Platelet Count 313 K/mm3 (140-440); Red Blood Count 4.19 M/mm3 (3.65-5.03); Red Cell Distribution Width 15.5 % (13.2-15.2)
[2017-08-07 19:43] LABS: INR 0.89 (0.87-1.13)
[2017-08-07 19:44] LABS: Partial Thromboplastin Time 31.5 Sec. (24.2-36.6)
--- NOTE | 2017-08-07 20:23 | XRay Report ---
FINAL REPORT EXAM: XR TIBIA FIBULA 2V LT HISTORY: left lower leg pain, swelling TECHNIQUE: AP and lateral portable views of the left tibia and fibula PRIORS: None. FINDINGS: There are acute transverse fractures through the distal aspects of the tibia and fibula at the same level. Soft tissue swelling is present. There is no evidence for dislocation. No radiopaque foreign bodies are seen. Bony mineralization is normal and joint spaces are maintained. IMPRESSION: Acute transverse fracture through the distal aspects of the left tibia and fibula. Overlying soft tissue swelling is present.
[2017-08-07 20:50] LABS: Creatine Kinase MB 1.6 ng/mL (0.0-4.0)
[2017-08-07 20:52] LABS: BUN/Creatinine Ratio 12; Blood Urea Nitrogen 7 mg/dL (7-17); Calcium 8.6 mg/dL (8.4-10.2); Hemolysis Index 15
[2017-08-07] MEDS ORDERED: SUBLIMAZE IV ONE ×2 (22:31→23:00)
--- NOTE | 2017-08-07 22:48 | Cat Scan Report ---
FINAL REPORT EXAM: CT ANGIO CHEST HISTORY: chest pain, shortness of breath TECHNIQUE: Enhanced CT of the chest at 1.25 mm axial intervals following a pulmonary embolism protocol. Coronal and sagittal imaging were also obtained. Coronal oblique MIP projections were obtained. Contrast: 100 ml of Omnipaque 350 given IV. PRIORS: CT chest 03/30/2017 FINDINGS: There is no evidence for pulmonary embolism in the main pulmonary artery, right and left pulmonary arteries or their major distributions. However, CT does not exclude distal pulmonary emboli. Within the neck, a small hypodense ovoid nodule in the right lobe of the thyroid is unchanged. Otherwise, the lung parenchyma are expanded and clear with no evidence for parenchymal nodules, infiltrates, congestion, or pleural effusion. There is no evidence for mediastinal, hilar, or axillary adenopathy. A tiny pericardial effusion is present in the pericardial recess. Cardiovascular structures are otherwise within normal limits. No evidence for ventricular chamber enlargement is seen. Images through the lung bases include the upper abdomen which show no abnormalities of the visualized abdominal viscera. Bony structures demonstrate bilateral pedicle screws and stabilizing bars from T4 through T8 surrounding the compression deformity involving T6, unchanged in overall appearance. IMPRESSION: No evidence for pulmonary embolism. Stable CT of the chest.
[2017-08-07] MEDS ORDERED: ZOFRAN ONE (23:29)
[2017-08-07] MEDS ORDERED: NACL 0.9% 1000 ML 1,000 ML ONE (23:44)
[2017-08-07] MEDS ORDERED: BENADRYL PO ONE (23:44)
[2017-08-08] MEDS ORDERED: NACL 0.9% 1000 ML 1,000 ML IV ONE (00:15)
[2017-08-08] MEDS ORDERED: ZOFRAN IV ONE (00:15)
[2017-08-08] MEDS ORDERED: BENADRYL PO ONE (00:16)
[2017-08-08 07:34] VITALS: BP 107/48
== END 2017-08-08 08:20 | disposition home or self-care (01) ==
LOC: ED 17:56
DX: S82.832A Other fracture of upper and lower end of left fibula, initial encounter for closed fracture (principal); S82.302A Unspecified fracture of lower end of left tibia, initial encounter for closed fracture; M19.90 Unspecified osteoarthritis, unspecified site; F17.200 Nicotine dependence, unspecified, uncomplicated; W08.XXXA Fall from other furniture, initial encounter; Y93.89 Activity, other specified; Y92.89 Other specified places as the place of occurrence of the external cause; Y99.8 Other external cause status
CPT/HCPCS: 29515; 36415; 71275; 73590; 80048; 82550; 82553; 83880; 84484; 85025; 85610; 85730; 93005; 93010; 96361; 96374; 96375; 99285; J2405; J3010; J7030; Q9967

== ENCOUNTER 2017-12-01 15:02 | Outpatient (CLI) | payer MEDICAID ==
--- NOTE | 2017-12-04 11:11 | Mammography Report ---
BILATERAL DIGITAL SCREENING MAMMOGRAM with CAD: 12/01/17 15:02:00 CLINICAL: Routine screening. COMPARISON:02/23/15 FINDINGS: The patient was unable to stand for the exam. The breasts are heterogeneously dense, which may obscure small masses. No mass, architectural distortion or suspicious calcifications. IMPRESSION: No mammographic evidence of malignancy. BI-RADS CATEGORY: 1 - - Negative RECOMMENDATION: Routine mammographic screening in one year. COMMENT: Patient follow-up letters are generated by our [employer] application.
== END 2017-12-01 15:03 | disposition home or self-care (01) ==
LOC: MAMMO 15:02
PROVIDERS: ATTEND Family Medicine
DX: Z12.31 Encounter for screening mammogram for malignant neoplasm of breast (principal); J45.909 Unspecified asthma, uncomplicated; M19.90 Unspecified osteoarthritis, unspecified site; Z88.8 Allergy status to other drugs, medicaments and biological substances; Z90.710 Acquired absence of both cervix and uterus; Z88.1 Allergy status to other antibiotic agents
CPT/HCPCS: 77067

== ENCOUNTER 2018-08-06 11:20 | Emergency (ER) | payer MEDICAID ==
[2018-08-06] MEDS ORDERED: PERCOCET 5/325 PO ONE (12:20)
[2018-08-06] MEDS ORDERED: ZOFRAN ODT PO ONE (12:21)
[2018-08-06] MEDS ORDERED: ZOFRAN IV ONE (12:21)
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
[2018-08-06] MEDS ORDERED: NACL 0.9% 500 ML 500 ML IV ONE (12:55)
[2018-08-06 13:12] LABS: BUN/Creatinine Ratio 18; Blood Urea Nitrogen 11 mg/dL (7-17); Hemolysis Index 6
[2018-08-06 13:24] LABS: Basophils % (Auto) 0.6 % (0.0-1.8); Eosinophils # (Auto) 0.1 K/mm3 (0.0-0.4); Eosinophils % (Auto) 1.7 % (0.0-4.3); Hematocrit 39.2 % (30.3-42.9); Hemoglobin 12.8 gm/dl (10.1-14.3); Lymphocytes # (Auto) 2.2 K/mm3 (1.2-5.4); Lymphocytes % (Auto) 34.4 % (13.4-35.0); Mean Corpuscular HGB Conc 33 % (30-34); Mean Corpuscular Volume 83 fl (79-97); Monocytes # (Auto) 0.4 K/mm3 (0.0-0.8); Monocytes % (Auto) 6.8 % (0.0-7.3); Platelet Count 272 K/mm3 (140-440); Red Blood Count 4.72 M/mm3 (3.65-5.03)
[2018-08-06 13:47] LABS: Bacteria,Urine 2+ /HPF (Negative); Bilirubin,Urine NEG (Negative); Blood,Urine LG (Negative); Color,Urine Yellow (Yellow); Mucus,Urine FEW /HPF; Protein,Urine <15 mg/dL mg/dL (Negative); Urobilinogen,Urine < 2.0 mg/dL (<2.0)
[2018-08-06] MEDS ORDERED: ROCEPHIN/NS 1 GM/50 ML 1 GM/50 ML BAG IV ONE (14:07)
[2018-08-06 19:29] VITALS: BP 121/44
== END 2018-08-07 10:16 | disposition home or self-care (01) ==
LOC: ED 11:20
DX: N39.0 Urinary tract infection, site not specified (principal); G82.20 Paraplegia, unspecified; M19.90 Unspecified osteoarthritis, unspecified site; J45.909 Unspecified asthma, uncomplicated; F17.200 Nicotine dependence, unspecified, uncomplicated; Z90.710 Acquired absence of both cervix and uterus; Z88.1 Allergy status to other antibiotic agents; Z88.8 Allergy status to other drugs, medicaments and biological substances
CPT/HCPCS: 36415; 51702; 80048; 81001; 85025; 87086; 96365; 99284; J0696; J7040; Q0162

== ENCOUNTER 2019-07-14 02:35 | Emergency (ER) | payer MEDICAID ==
[2019-07-14] MEDS ORDERED: ONDANSETRON 4 MG/2 ML INJ IV ONE (02:56)
[2019-07-14] MEDS ORDERED: MECLIZINE 25 MG TAB PO ONE (02:56)
[2019-07-14] MEDS ORDERED: SODIUM CHLORIDE 0.9% 1000 ML 1,000 ML IV ONE (03:01)
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
[2019-07-14] MEDS ORDERED: LEVALBUTEROL 0.63 MG/3 ML NEBU IH ONE (03:21)
[2019-07-14 04:08] LABS: Bacteria,Urine 4+ /HPF (Negative); Bilirubin,Urine NEG (Negative); Blood,Urine NEG (Negative); Calcium Oxalate Crystals,Urine 1+; Color,Urine Yellow (Yellow); Mucus,Urine FEW /HPF; Protein,Urine <15 mg/dL mg/dL (Negative)
[2019-07-14 04:09] LABS: Basophils % (Auto) 0.2 % (0.0-1.8); Eosinophils # (Auto) 0.2 K/mm3 (0.0-0.4); Eosinophils % (Auto) 1.7 % (0.0-4.3); Hematocrit 37.8 % (30.3-42.9); Hemoglobin 12.4 gm/dl (10.1-14.3); Lymphocytes # (Auto) 2.8 K/mm3 (1.2-5.4); Lymphocytes % (Auto) 27.4 % (13.4-35.0); Mean Corpuscular HGB Conc 33 % (30-34); Mean Corpuscular Volume 81 fl (79-97); Monocytes # (Auto) 0.7 K/mm3 (0.0-0.8); Monocytes % (Auto) 6.7 % (0.0-7.3); Platelet Count 397 K/mm3 (140-440); Red Blood Count 4.66 M/mm3 (3.65-5.03); Red Cell Distribution Width 15.4 % (13.2-15.2)
[2019-07-14 04:28] LABS: Creatine Kinase MB 2.2 ng/mL (0.0-4.0)
[2019-07-14 04:30] LABS: Alanine Aminotransferase 28 units/L (7-56); Albumin 3.8 g/dL (3.9-5); BUN/Creatinine Ratio 14; Blood Urea Nitrogen 10 mg/dL (7-17); Calcium 9.5 mg/dL (8.4-10.2); Hemolysis Index 1
--- NOTE | 2019-07-14 04:32 | Cat Scan Report ---
CT HEAD WITHOUT CONTRAST HISTORY: Dizziness, nausea COMPARISON: None TECHNIQUE: CT imaging of the head was performed in the axial, sagittal, and coronal projections and bone algori thm in axial projection in the soft tissue algorithm. All CT scans at this location are performed using CT dose reduction for ALARA by means of automated e xposure control. CONTRAST: None. FINDINGS: Cerebral and Cerebellar Hemispheres: No evidence of mass or mass effect. No midline shift. No acute hemorrhage. No acute cortical infarction. No extra-axial fluid collection. Ventricles: Normal in size and configuration for age. Osseous Structures: No significant abnormality. Visualized Paranasal Sinuses: No significant abnormality. Additional Findings: None IMPRESSION: 1. No acute intracranial abnormality. NOTE: Acute infarct may not be visible by noncontrast CT. Signer Name: Rl Garcia MD Signed: 07/14/2019 4:28 AM Workstation Name: [id number]
[2019-07-14 04:42] LABS: Free T4 (Free Thyroxine) 0.99 ng/dL (0.76-1.46)
[2019-07-14 05:38] VITALS: BP 147/69
== END 2019-07-14 08:45 | disposition home or self-care (01) ==
LOC: ED 02:35
DX: N39.0 Urinary tract infection, site not specified (principal); R11.0 Nausea; R42 Dizziness and giddiness; L97.929 Non-pressure chronic ulcer of unspecified part of left lower leg with unspecified severity; F17.200 Nicotine dependence, unspecified, uncomplicated; J45.909 Unspecified asthma, uncomplicated; M19.90 Unspecified osteoarthritis, unspecified site; I10 Essential (primary) hypertension; Z88.8 Allergy status to other drugs, medicaments and biological substances; Z79.899 Other long term (current) drug therapy; Z90.710 Acquired absence of both cervix and uterus; Z98.890 Other specified postprocedural states
CPT/HCPCS: 36415; 70450; 80053; 81001; 82550; 82553; 83690; 84439; 84443; 84484; 85025; 87076; 87086; 87116; 87186; 94640; 96361; 96374; 99285; J2405; J7030; 94644

== ENCOUNTER 2020-09-16 13:26 | Emergency (ER) | payer MEDICAID ==
--- NOTE | 2020-09-16 14:01 | Event Note ---
ED Screening Note Date of service: 09/16/20 Time: 13:59 ED Screening Note: 55-year-old wheelchair-bound female patient with history of suprapubic catheter placement secondary to neurogenic bladder and traumatic lower extremity paralysis presents to the emergency department with complaints of mal odorous/discolored urine for approximately 2 weeks. Symptoms are reminiscent of prior urinary tract infections. She was last diagnosed with a UTI in June. She has not been on antibiotics since June. Patient also endorses diffuse lower abdominal pain and diffuse lower back pain, worse on the right. Tachycardic in triage. General: Awake, appropriately interactive, no acute distress. Neck: Supple. Full range of motion intact. Cardiovascular: Normal peripheral perfusion. Pulmonary: No respiratory distress. Patient is speaking normally without use of accessory muscles. Skin: No apparent rashes or lesions. Neurological: No facial asymmetry. Speech is clear. Follows commands. Patient is alert and oriented. Musculoskeletal: Wheelchair-bound. Psych: Cooperative. Appropriate mood and affect. Labs ordered; decision to pursue further diagnostic work-up (i.e. imaging) deferred to additional ED providers. I have greeted and performed a focused rapid initial assessment of this patient. A comprehensive ED assessment and evaluation of the patient, analysis of all test results, and completion of the medical decision-making process will be conducted by additional ED providers. This initial assessment/diagnostic orders/clinical plan/treatment(s) is/are subject to change based on patients health status, clinical progression and re-assessment. Further treatment and workup at subsequent clinical provider's discretion. Patient/guardian urged not to elope from the ED as their condition may be serious if not clinically assessed and managed.
[2020-09-16 14:46] LABS: Basophils % (Auto) 0.3 % (0.0-1.8); Eosinophils # (Auto) 0.1 K/mm3 (0.0-0.4); Eosinophils % (Auto) 1.2 % (0.0-4.3); Hematocrit 37.7 % (30.3-42.9); Hemoglobin 12.5 gm/dl (10.1-14.3); Lymphocytes # (Auto) 2.2 K/mm3 (1.2-5.4); Lymphocytes % (Auto) 24.4 % (13.4-35.0); Mean Corpuscular HGB Conc 33 % (30-34); Mean Corpuscular Volume 81 fl (79-97); Monocytes # (Auto) 0.7 K/mm3 (0.0-0.8); Monocytes % (Auto) 7.7 % (0.0-7.3); Platelet Count 296 K/mm3 (140-440); Red Blood Count 4.63 M/mm3 (3.65-5.03)
[2020-09-16 15:16] LABS: Alanine Aminotransferase 20 units/L (7-56); Albumin 3.8 g/dL (3.9-5); Blood Urea Nitrogen 10 mg/dL (7-17); Calcium 9.5 mg/dL (8.4-10.2); Hemolysis Index 35
[2020-09-16 15:22] LABS: BUN/Creatinine Ratio 17
[2020-09-16 18:13] LABS: Bacteria,Urine 1+ /HPF (Negative); Bilirubin,Urine NEG (Negative); Blood,Urine NEG (Negative); Color,Urine Straw (Yellow); Protein,Urine <15 mg/dL mg/dL (Negative); Urobilinogen,Urine < 2.0 mg/dL (<2.0)
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
[2020-09-16 19:01] VITALS: BP 130/62
== END 2020-09-16 19:01 | disposition home or self-care (01) ==
LOC: ED 13:26
DX: T83.511A Infection and inflammatory reaction due to indwelling urethral catheter, initial encounter (principal); N39.0 Urinary tract infection, site not specified; I10 Essential (primary) hypertension; M19.90 Unspecified osteoarthritis, unspecified site; F17.200 Nicotine dependence, unspecified, uncomplicated; J44.9 Chronic obstructive pulmonary disease, unspecified; Z90.710 Acquired absence of both cervix and uterus; Z98.890 Other specified postprocedural states; Z79.899 Other long term (current) drug therapy; Z88.8 Allergy status to other drugs, medicaments and biological substances; Y92.89 Other specified places as the place of occurrence of the external cause
CPT/HCPCS: 36415; 80053; 81001; 83735; 85025; 87086